=== PATIENT | female | born 1985 | race Caucasian/White ===

== ENCOUNTER 2016-08-15 08:04 | Emergency (ER) | payer SELFPAY ==
[~2016-08-15] VITALS: Ht 170.2 cm; Wt 63.0 kg
[2016-08-15 09:03] LABS: BLOOD UREA NITROGEN 12 mg/dL (7-18)
[2016-08-15 09:45] VITALS: BP 98/50
[2016-08-16] MEDS ORDERED: [UNRECOGNIZED DRUG - OTHER] PO (15:37)
[2016-08-16] MEDS ORDERED: [UNRECOGNIZED DRUG - OTHER] (15:37)
[2016-08-16] MEDS ORDERED: RANI150T8 PO (15:37)
== END 2016-08-15 11:13 | disposition home or self-care (01) ==
LOC: ED 11:07
DX: N83.02 Follicular cyst of left ovary (principal)
CPT/HCPCS: 36415; 76830; 80048; 81003; 82040; 84703; 85025; 99285

== ENCOUNTER 2016-08-16 14:31 | Day surgery (SDC) | payer OTHER ==
[~2016-08-16] VITALS: Ht 170.2 cm; Wt 60.0 kg
[~2016-08-16 14:31] MED LIST: CEFAZOLIN 1,000 MG ONE; DEXAMETHASONE 4 MG/ML, 1ML ONE; KETOROLAC 30 MG/1 ML ONE; ONDANSETRON 2MG/ML, 2ML ONE; PROPOFOL 10 MG/ML, 20ML ONE; PROPOFOL 10 MG/ML, 50ML ONE; SUCCINYLCHOLINE 20 MG/ML, 10ML ONE
[2016-08-16] MEDS ORDERED: SCOPOLAMINE PATCH, 1.5MG PATCH.TD72 TD ONE ×2 (14:59→15:39)
[2016-08-16] MEDS ORDERED: LACTATED RINGERS 1,000 ML IV SCH ×2 (15:02→15:35)
[2016-08-16] MEDS ORDERED: FLUORESCEIN SODIUM 500 MG/5 ML ONE (15:07)
[2016-08-16] MEDS ORDERED: BUPIVACAINE/PF 0.25% ONE (15:08)
[2016-08-16 15:22] VITALS: BP 107/64
[2016-08-16] MEDS ORDERED: PLEASE ENTER ALLERGIES MC SCH ×2 (15:30)
[2016-08-16] MEDS ORDERED: MIDAZOLAM 1 MG/ML, 2ML ONE (15:36)
[2016-08-16] MEDS ORDERED: FENTANYL PF 250 MCG/5ML ONE (15:37)
[2016-08-16] MEDS ORDERED: RANI150T8 PO (15:37)
[2016-08-16] MEDS ORDERED: [UNRECOGNIZED DRUG - OTHER] (15:37)
[2016-08-16] MEDS ORDERED: [UNRECOGNIZED DRUG - OTHER] PO (15:37)
[2016-08-16] MEDS ORDERED: SILVER NITRATE STICK TP ONE (17:56)
[2016-08-16] MEDS ORDERED: ONDANSETRON 2MG/ML, 2ML IVPush PRN (18:00)
[2016-08-16] MEDS ORDERED: MEPERIDINE/PF 25MG/0.5ML IVPush PRN (18:00)
[2016-08-16] MEDS ORDERED: MIDAZOLAM 1 MG/ML, 2ML IV PRN (18:00)
[2016-08-16] MEDS ORDERED: ACETAMINOPHEN 325 MG TABLET PO PRN (18:00)
[2016-08-16] MEDS ORDERED: HYDROmorphone 1 MG/ML, 1ML IV PRN (18:00)
[2016-08-16] MEDS ORDERED: FENTANYL PF 100 MCG/2ML IV PRN (18:00)
[2016-08-16] MEDS ORDERED: OXYcodone 5 MG/5 ML ORAL.SOL UDC PO PRN (18:00)
[2016-08-16] MEDS ORDERED: ACETAMINOPHEN 650 MG/20.3 ML UDC ONE (19:09)
[2016-08-16] MEDS ORDERED: OXYcodone 5 MG/5 ML ORAL.SOL UDC ONE (19:10)
[2016-08-16] MEDS ORDERED: ACETAMINOPHEN 325 MG TABLET ONE (19:10)
== END 2016-08-16 20:28 | disposition home or self-care (01) ==
LOC: OR 14:31
PROVIDERS: ATTEND Obstetrics & Gynecology Gynecology
DX: N83.12 Corpus luteum cyst of left ovary (principal); Z30.2 Encounter for sterilization; N93.9 Abnormal uterine and vaginal bleeding, unspecified; Z87.11 Personal history of peptic ulcer disease; Z83.3 Family history of diabetes mellitus; Z82.49 Family history of ischemic heart disease and other diseases of the circulatory system; Z82.3 Family history of stroke; Z84.1 Family history of disorders of kidney and ureter
CPT/HCPCS: 36415; 58120; 58661; 58662; 86850; 86900; 88302; 88305; J0330; J0690; J1100; J1885; J2250; J2405; J2704; J3010; J3490; J7120

== ENCOUNTER → 2016-12-11 | Outpatient (CLI) | payer OTHER ==
[~2016-12-11] MED LIST changes: -CEFAZOLIN 1,000 MG ONE; -DEXAMETHASONE 4 MG/ML, 1ML ONE; -KETOROLAC 30 MG/1 ML ONE; -ONDANSETRON 2MG/ML, 2ML ONE; -PROPOFOL 10 MG/ML, 20ML ONE; -PROPOFOL 10 MG/ML, 50ML ONE; +RANI150T8 PO; -SUCCINYLCHOLINE 20 MG/ML, 10ML ONE; +[UNRECOGNIZED DRUG - OTHER]; +[UNRECOGNIZED DRUG - OTHER] PO
[2016-12-11 13:17] LABS: ASPARTATE AMINO TRANSFERASE 27 U/L (15-37)
== END | disposition home or self-care (01) ==
LOC: LAB 12:55
PROVIDERS: ATTEND Dermatology
DX: L70.0 Acne vulgaris (principal); Z79.899 Other long term (current) drug therapy
CPT/HCPCS: 36415; 80076; 82465; 84478; 84703

== ENCOUNTER → 2017-02-13 | Outpatient (CLI) | payer OTHER ==
[2017-02-13 09:37] LABS: ASPARTATE AMINO TRANSFERASE 19 U/L (15-37)
== END ==
LOC: LAB 09:12
PROVIDERS: ATTEND Dermatology
DX: L70.0 Acne vulgaris (principal); Z79.899 Other long term (current) drug therapy
CPT/HCPCS: 36415; 80076; 82465; 84478; 84703

== ENCOUNTER → 2017-03-12 | Outpatient (CLI) | payer OTHER ==
[2017-03-12 14:50] LABS: ASPARTATE AMINO TRANSFERASE 21 U/L (15-37)
== END | disposition home or self-care (01) ==
LOC: LAB 14:16
PROVIDERS: ATTEND Dermatology
DX: L70.0 Acne vulgaris (principal); Z79.899 Other long term (current) drug therapy
CPT/HCPCS: 36415; 80076; 82465; 84478; 84703

== ENCOUNTER → 2017-04-10 | Outpatient (CLI) | payer OTHER ==
[2017-04-10 09:43] LABS: ALANINE AMINOTRANSFERASE 19 U/L (12-78); ALKALINE PHOSPHATASE 61 U/L (45-117); BILIRUBIN, DIRECT 0.3 mg/dL (0.1-0.2); BILIRUBIN,TOTAL 1.3 mg/dL (0.2-1.0); CHOLESTEROL, TOTAL 128 mg/dL (140-239); TOTAL PROTEIN 7.2 g/dL (6.4-8.2); TRIGLYCERIDES 41 mg/dL (50-200)
== END | disposition home or self-care (01) ==
LOC: LAB 09:08
PROVIDERS: ATTEND Dermatology
DX: L70.0 Acne vulgaris (principal); Z79.899 Other long term (current) drug therapy
CPT/HCPCS: 36415; 80076; 82465; 84478; 84703

== ENCOUNTER → 2017-05-08 | Outpatient (CLI) | payer OTHER ==
[2017-05-08 09:22] LABS: ALANINE AMINOTRANSFERASE 21 U/L (12-78); ALBUMIN 3.9 g/dL (3.4-5.0); BILIRUBIN, DIRECT 0.3 mg/dL (0.1-0.2); CHOLESTEROL, TOTAL 117 mg/dL (140-239); TRIGLYCERIDES 34 mg/dL (50-200)
[2017-05-08 09:27] LABS: ALKALINE PHOSPHATASE 62 U/L (45-117); BILIRUBIN,INDIRECT 0.7 mg/dL (0.0-2.0); TOTAL PROTEIN 6.9 g/dL (6.4-8.2)
== END | disposition home or self-care (01) ==
LOC: LAB 08:59
PROVIDERS: ATTEND Dermatology
DX: L70.0 Acne vulgaris (principal); Z79.899 Other long term (current) drug therapy
CPT/HCPCS: 36415; 80076; 82465; 84478; 84703

== ENCOUNTER 2020-06-22 07:09 | Inpatient (IN) | payer OTHER ==
[2020-06-21 15:02] LABS: HCG UR SG 1.036 (1.003-1.030)
[~2020-06-22] VITALS: Ht 170.2 cm; Wt 59.0 kg
[~2020-06-22 07:09] MED LIST changes: +RANI-467 PO; -RANI150T8 PO
[2020-06-22] MEDS ORDERED: VANCOMYCIN 1,000 MG ONE (07:11)
[2020-06-22] MEDS ORDERED: EPINEPHRINE 1 MG/ML, 1ML ONE (07:11)
[2020-06-22] MEDS ORDERED: LIDOCAINE/PF 1%-EPI 1:200K, 30 ML ONE (07:11)
[2020-06-22] MEDS ORDERED: BUPIVACAINE/PF 0.5% ONE (07:11)
[2020-06-22] MEDS ORDERED: BACITRACIN 50,000 UNIT ONE (07:11)
[2020-06-22] MEDS ORDERED: REMIFENTANIL 2 MG ONE (07:23)
[2020-06-22] MEDS ORDERED: CHLORHEXIDINE 15 ML UDC ONE (07:24)
[2020-06-22 07:33] VITALS: BP 105/69
[2020-06-22] MEDS ORDERED: GABA300C PO (07:42)
[2020-06-22] MEDS ORDERED: CELE200C PO (07:42)
[2020-06-22] MEDS ORDERED: GENTAMICIN 80 MG/2 ML ONE (07:49)
[2020-06-22] MEDS ORDERED: LORazepam 2 MG/ML, 1ML IVPush PRN (08:00)
[2020-06-22] MEDS ORDERED: HYDROmorphone 1 MG/ML, 1ML INJ IVPush PRN (08:00)
[2020-06-22] MEDS ORDERED: PROMETHAZINE 25 MG/ML, 1ML IVPush PRN (08:00)
[2020-06-22] MEDS ORDERED: CHLORHEXIDINE 15 ML UDC PO ONE (08:00)
[2020-06-22] MEDS ORDERED: ACETAMINOPHEN 325 MG TABLET PO PRN (08:00)
[2020-06-22] MEDS ORDERED: FENTANYL PF 100 MCG/2ML IV PRN (08:00)
[2020-06-22] MEDS ORDERED: METHOCARBAMOL 1,000 MG in DEXTROSE 5% 100 ML IV PRN (08:00)
[2020-06-22] MEDS ORDERED: ONDANSETRON 2MG/ML, 2ML IVPush PRN (08:00)
[2020-06-22] MEDS ORDERED: OXYcodone 5 MG/5 ML ORAL.SOL UDC PO PRN (08:00)
[2020-06-22] MEDS ORDERED: LACTATED RINGERS 1,000 ML IV SCH (08:00)
[2020-06-22] MEDS ORDERED: LABETALOL 5MG/ML, 20ML IV PRN ×2 (08:00→14:00)
[2020-06-22] MEDS ORDERED: MEPERIDINE/PF 25MG/0.5ML IVPush PRN (08:00)
[2020-06-22] MEDS ORDERED: EPHEDRINE 50 MG/ML, 1ML IVPush PRN (08:00)
[2020-06-22] MEDS ORDERED: SCOPOLAMINE 1MG PATCH TD SCH ×2 (08:00→14:00)
[2020-06-22] MEDS ORDERED: hydrALAzine 20 MG/ML, 1ML IV PRN (08:00)
[2020-06-22] MEDS ORDERED: DIPHENHYDRAMINE 50 MG/ML, 1ML IVPush PRN ×2 (08:00→14:00)
[2020-06-22] MEDS ORDERED: MIDAZOLAM 1 MG/ML, 2ML ONE (08:32)
[2020-06-22] MEDS ORDERED: FENTANYL PF 250 MCG/5ML ONE (08:32)
[2020-06-22] MEDS ORDERED: GLYCOPYRROLATE 0.2MG/1ML, 5ML ONE (08:34)
[2020-06-22] MEDS ORDERED: ONDANSETRON 2MG/ML, 2ML ONE (08:34)
[2020-06-22] MEDS ORDERED: SUCCINYLCHOLINE 20 MG/ML, 10ML ONE (08:34)
[2020-06-22] MEDS ORDERED: PROPOFOL 10 MG/ML, 20ML ONE (08:34)
[2020-06-22] MEDS ORDERED: PROPOFOL 50 ML ONE ×2 (08:34→09:58)
[2020-06-22] MEDS ORDERED: NEOSTIGMINE 1 MG/ML, 10ML ONE (08:34)
[2020-06-22] MEDS ORDERED: CEFAZOLIN 1,000 MG ONE (08:34)
[2020-06-22] MEDS ORDERED: ROCURONIUM 10MG/ML,5ML ONE (08:34)
[2020-06-22] MEDS ORDERED: DEXAMETHASONE 4 MG/ML, 1ML ONE (08:34)
[2020-06-22] MEDS ORDERED: DIAZEPAM 5 MG/ML, 2ML ONE (11:39)
[2020-06-22] MEDS ORDERED: HYDROmorphone 1 MG/ML, 1ML INJ ONE (11:39)
[2020-06-22] MEDS ORDERED: FENTANYL PF 100 MCG/2ML ONE (11:39)
[2020-06-22] MEDS ORDERED: ACETAMINOPHEN 325 MG TABLET ONE (12:15)
[2020-06-22] MEDS ORDERED: DIAZEPAM 5 MG/ML, 2ML IVPush PRN (12:30)
[2020-06-22 12:56] VITALS: BP 106/61
[2020-06-22] MEDS ORDERED: ONDANSETRON 2MG/ML, 2ML IV PRN (14:00)
[2020-06-22] MEDS ORDERED: DIAZEPAM 5 MG/ML, 2ML IV PRN (14:00)
[2020-06-22] MEDS ORDERED: DIAZEPAM 5 MG TABLET PO PRN (14:00)
[2020-06-22] MEDS: D5%-0.9% NACL+KCL 20MEQ 1,000 ML IV SCH (15:33)
[2020-06-22] MEDS: GABAPENTIN 300 MG CAPSULE PO SCH ×2 (16:54→21:54)
[2020-06-22] MEDS: CEFAZOLIN PMX 1GM/50ML 50 ML IVPB SCH (16:55)
[2020-06-22] MEDS ORDERED: DEXAMETHASONE 4 MG/ML, 1ML IV ONE ×2 (17:00→21:00)
[2020-06-22 18:23] VITALS: BP 93/53
[2020-06-22 22:18] VITALS: BP 94/54
[2020-06-22] MEDS: ACETAMINOPHEN 500 MG TABLET PO PRN (22:21)
[2020-06-23 00:43] VITALS: BP 91/50
[2020-06-23] MEDS: CEFAZOLIN PMX 1GM/50ML 50 ML IVPB SCH (01:20)
[2020-06-23] MEDS: D5%-0.9% NACL+KCL 20MEQ 1,000 ML IV SCH ×3 (01:20→20:01)
[2020-06-23 03:48] VITALS: BP 91/57
[2020-06-23] MEDS: ACETAMINOPHEN 500 MG TABLET PO PRN ×3 (05:31→20:01)
[2020-06-23 07:54] VITALS: BP 94/57
[2020-06-23] MEDS: GABAPENTIN 300 MG CAPSULE PO SCH ×3 (08:55→20:01)
[2020-06-23 13:42] VITALS: BP 90/50
[2020-06-23] MEDS: CEFAZOLIN PMX 1GM/50ML 50 ML IV SCH ×2 (14:43→22:31)
[2020-06-23] MEDS ORDERED: DEXAMETHASONE 4 MG/ML, 1ML ONE (18:25)
[2020-06-23] MEDS ORDERED: DOCUSATE 100 MG CAPSULE ONE (18:25)
[2020-06-23] MEDS ORDERED: DEXAMETHASONE 4 MG/ML, 1ML IVPush ONE (18:30)
[2020-06-23] MEDS: DOCUSATE 100 MG CAPSULE PO SCH (18:30)
[2020-06-23 19:48] VITALS: BP 99/63
[2020-06-24 00:55] VITALS: BP 97/58
[2020-06-24] MEDS: ACETAMINOPHEN 500 MG TABLET PO PRN ×2 (05:51→11:41)
[2020-06-24] MEDS: CEFAZOLIN PMX 1GM/50ML 50 ML IV SCH (05:51)
[2020-06-24 06:48] VITALS: BP 102/62
[2020-06-24] MEDS: D5%-0.9% NACL+KCL 20MEQ 1,000 ML IV SCH ×2 (08:00)
[2020-06-24] MEDS: GABAPENTIN 300 MG CAPSULE PO SCH (08:02)
[2020-06-24] MEDS: DOCUSATE 100 MG CAPSULE PO SCH (08:02)
[2020-06-24] MEDS: OXYcodone IR 5MG TABLET PO PRN ×2 (08:03→11:41)
[2020-06-24] MEDS ORDERED: SENNA/DOCUSATE TABLET PO SCH (09:00)
[2020-06-24 09:10] VITALS: BP 95/63
[2020-06-24 12:47] VITALS: BP 105/61
== END 2020-06-24 14:03 | disposition home or self-care (01) | DRG 519 ==
LOC: OUT 07:09 → 4NE 13:04 → OUT 13:09
PROVIDERS: ADMIT Orthopaedic Surgery Orthopaedic Surgery of the Spine; ATTEND Orthopaedic Surgery Orthopaedic Surgery of the Spine
PROC: 00UT0KZ Supplement Spinal Meninges with Nonautologous Tissue Substitute, Open Approach (ICD-10-PCS; 2020-06-22)
PROC: 01NR0ZZ Release Sacral Nerve, Open Approach (ICD-10-PCS; 2020-06-22)
PROC: 01NB0ZZ Release Lumbar Nerve, Open Approach (ICD-10-PCS; principal; 2020-06-22 09:00)
DX: M48.061 Spinal stenosis, lumbar region without neurogenic claudication (principal); G97.41 Accidental puncture or laceration of dura during a procedure; G96.00 Cerebrospinal fluid leak, unspecified; M54.17 Radiculopathy, lumbosacral region; M51.36 Other intervertebral disc degeneration, lumbar region; M54.18 Radiculopathy, sacral and sacrococcygeal region; M41.9 Scoliosis, unspecified; M54.16 Radiculopathy, lumbar region; Y83.8 Other surgical procedures as the cause of abnormal reaction of the patient, or of later complication, without mention of misadventure at the time of the procedure; Z20.822 Contact with and (suspected) exposure to COVID-19; Z79.899 Other long term (current) drug therapy; Z79.891 Long term (current) use of opiate analgesic; Z79.01 Long term (current) use of anticoagulants; Y92.234 Operating room of hospital as the place of occurrence of the external cause
CPT/HCPCS: 72100; S0020; 81025; G0378; J0171; J0690; J1100; J2250; J2270; J2405; J2704; J2710; J3010; J3360; J3370; C1781; J0330; J1580; J2800; J3480; J7120; U0003

== ENCOUNTER → 2020-11-03 | Outpatient (CLI) | payer OTHER ==
[~2020-11-03] MED LIST changes: +CELE200C PO; +GABA300C PO
[2020-11-03 09:42] LABS: BASOPHILS % (AUTO) 1 % (0-1); EOSINOPHILS % (AUTO) 1 % (1-7); LYMPHOCYTES % (AUTO) 46 % (22-44); MEAN CORPUSCULAR HEMOGLOBIN 32.8 pg (27.0-34.8); MEAN CORPUSCULAR HGB CONC 34.2 g/dL (32.4-35.8); MEAN PLATELET VOLUME 7.6 fL (7.4-10.4); MONOCYTES % (AUTO) 8 % (2-9); NEUTROPHILS % (AUTO) 44 % (42-75); PLATELET COUNT 209 x10^3/uL (130-400); RED BLOOD COUNT 4.75 x10^6/uL (3.82-5.3); RED CELL DISTRIBUTION WIDTH 12.6 % (9.6-15.2)
== END | disposition home or self-care (01) ==
LOC: LAB 09:24
PROVIDERS: ATTEND Nurse Practitioner Obstetrics & Gynecology
DX: N92.0 Excessive and frequent menstruation with regular cycle (principal)
CPT/HCPCS: 36415; 82728; 85025